=== PATIENT | male | born 1955 | race Caucasian/White ===

== ENCOUNTER 2024-06-23 20:55 | Emergency (ER) | payer OTHER ==
[2024-06-23] MEDS ORDERED: ROCURONIUM 50 MG/5 ML VIAL IV ONE (20:56)
[2024-06-23] MEDS ORDERED: MIDAZOLAM HCL 5 ML ONE (21:13)
[2024-06-23] MEDS ORDERED: ETOMIDATE 20 MG/10 ML VIAL IV ONE (21:13)
[2024-06-23] MEDS ORDERED: MIDAZOLAM HCL IN 0.9 % NACL/PF 100 MG/100 ML BAG IVPB ONE (21:13)
--- NOTE | 2024-06-23 21:19 | RAD REPORT ---
EXAMINATION: Ct Stroke Brain Wo Cont CLINICAL INDICATION: Male, 69 years old.STROKE ALERT TECHNIQUE: Axial CT images from the skull base to the vertex without intravenous contrast. Coronal an d sagittal reformatted images were created from the data set. One or more of the following dose reduction techniques were used: Automated exposure control, adjustment of the mA and/or kV according to patient size, and/or iterative reconstruction. Unless otherwise specified, incidental findings do not require dedicated imaging follow-up. [id number]. COMPARISON: No prior exam. FINDINGS: INTRACRANIAL: Left frontal lobe parenchymal hemorrhage measuring approximately 5.3 x 3.9 cm with a co mbination of subarachnoid and subdural hematoma along the left frontal lobe convexity. No hydrocephalus. There is 7 mm of [id number] midline shift anteriorly. Moderate chronic small vessel ischemic changes.Mild cerebral atrophy. VASCULATURE: No visualized abnormalities in the arteries or dural venous sinuses. SCALP/SKULL: No calvarial fracture identified. No acute soft tissue abnormality. SINUSES: The visualized paranasal sinuses are mostly clear. No significant mastoid fluid. IMPRESSION: Moderate to large left frontal lobe mixed acute intraparenchymal and extra-axial hemorrhage with mild [id number] midline shift. THIS REPORT CONTAINS FINDINGS THAT MAY BE CRITICAL TO PATIENT CARE. The emergent findings were commun icated to Dr. Pate on 06/23/2024 9:15 PM.
[2024-06-23 21:21] LABS: Absolute Basophils 0.1 K/uL (0-0.5); Absolute Monocytes 0.2 K/uL (0.1-1.3); Absolute Neutrophil 8.6 K/uL (1.8-8.0); Basophils % 0.5 % (0-1.3); Eosinophils % 0.1 % (0-4.4); Hematocrit 46.9 % (39.6-49.0); Hemoglobin 15.8 g/dL (13.6-17.9); Lymphocytes % 9.9 % (15.3-44.8); MCH 29.7 pg (27.0-35.0); MCHC 33.8 g/dL (32.0-36.0); MCV 87.9 fL (80-100); MPV 8.7 fL (7.6-11.3); Monocytes % 2.1 % (3.3-12.3); Neutrophils % 87.4 % (41.7-73.7); Nucleated Red Blood Cells % 0.1 % (0-0); Platelets 169 thou/uL (152-406); RBC Red Blood Cell Count 5.33 M/uL (4.33-5.43); Red Cell Distribution Width 13.3 % (12.1-15.2)
[2024-06-23] MEDS ORDERED: propofoL 1,000 MG/100 ML VIAL IV ONE (21:26)
[2024-06-23 21:30] LABS: PT Prothrombin Time 12.2 SECONDS (10.0-13.0); PTT, Activated Partial Thromb 30.9 SECONDS (24.3-36.9); Protime INR 1.07
[2024-06-23 21:40] LABS: Albumin 3.8 g/dL (3.4-5.0); Albumin/Globulin Ratio 0.9 (1.1-1.8); Anion Gap 7.8 mEq/L (5.0-15.0); Bilirubin Direct 0.2 mg/dL (0-0.2); Bilirubin Indirect, Calculated 0.3 mg/dL (0.2-0.8); Bilirubin Total 0.5 mg/dL (0.2-1.0); Globulin 4.2 g/dL (2.3-3.5); Magnesium 2.2 mg/dL (1.6-2.4); Potassium 3.8 mEq/L (3.5-5.1); Troponin High Sensitivity 6.2 pg/mL (<58.9)
[2024-06-23] MEDS ORDERED: TRANEXAMIC ACID 1,000 MG/10 ML VIAL IV ONE (21:49)
[2024-06-23] MEDS ORDERED: Nicardipine/NS 25 MG/250 ML KIT IV ONE (21:50)
[2024-06-23] MEDS ORDERED: NA CHLORIDE 0.9% 100 ML ONE ×2 (21:50→22:24)
--- NOTE | 2024-06-23 21:54 | ER ---
Nurse's Notes [facility] Name: Faisal Abel Jr Age: 69 yrs Sex: Male : 1955 Arrival Date: 06/23/2024 Time: 20:55 Bed 2 Private MD: Diagnosis: Acute intraparenchymal intracranial hemorrhage, acute extra-axial intracranial hemorrhage , acute hypoxemic respiratory failure, hemorrhagic CVA Presentation: 06/23 21:04 Chief complaint: Spouse and/or significant other states: patient was found by at al5 1600 not acting like himself, had an episode of vomiting. patient and son brought patient to ED. upon arrival patient had global aphasia and facial droop. last well known was at 1000. Coronavirus screen: At this time, the client does not indicate any symptoms associated with coronavirus-19. Ebola Screen: No symptoms or risks identified at this time. 21:04 Method Of Arrival: Wheelchair al5 21:04 An acute neurological deficit is present. The charge nurse has been notified. The al5 patient has been moved to a treatment area. Pre-hospital glucose is not applicable to this patient. Initial Sepsis Screen: Does the patient meet any 2 criteria? Altered Mental Status. HR > 90 bpm. Does the patient have a suspected source of infection? No. Patient's initial sepsis screen is negative. Risk Assessment: Do you want to hurt yourself or someone else? Unable to obtain. Onset of symptoms was June 23, 2024 at 10:00. 21:04 Acuity: RUSTY 1 al5 Triage Assessment: 21:04 The onset of the patients symptoms was June 23, 2024 at 10:00. al5 21:04 General: Appears in no apparent distress. comfortable, Behavior is cooperative. Pain: al5 Unable to use pain scale. Patient is disoriented. Does not appear to understand pain scale. EENT: No signs and/or symptoms were reported regarding the EENT system. Neuro: Level of Consciousness is awake, alert, Oriented to person, place, time, situation, Moves all extremities. Speech global aphasia. Facial droop on right. Cardiovascular: Capillary refill < 3 seconds Patient's skin is warm and dry. Rhythm is sinus tachycardia. Respiratory: Airway is patent Respiratory effort is even, unlabored, Respiratory pattern is regular, symmetrical. GI: No signs and/or symptoms were reported involving the gastrointestinal system. : No signs and/or symptoms were reported regarding the genitourinary system. Derm: Skin is intact, is healthy with good turgor, Skin is pink, warm \T\ dry. normal. Musculoskeletal: No signs and/or symptoms reported regarding the musculoskeletal system. 21:04 Neuro: Reports patient cannot report, global aphasia. al5 Stroke Activation: Physician: ED Attending; Name: Dr. 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 - Infectious Disease History:: Denies. - Family history:: not pertinent. - Social history:: Smoking status: Patient reports the use of cigarette tobacco products, unknown amount. Screenin:[address] [facility] ED Fall Risk Assessment (Adult) History of falling in the last 3 months, al5 including since admission No falls in past 3 months (0 pts) Confusion or Disorientation Yes (5 pts) Intoxicated or Sedated Yes (3 pts) Impaired Gait Yes (1 pt) Mobility Assist Device Used No (0 pt) Altered Elimination Yes (1 pt) Score/Fall Risk Level 3 or more points = High Risk Maintained a safe environment, Hourly rounding (assess needs \T\ fall precautionary measures) done. 21:29 Abuse screen: Denies threats or abuse. Denies injuries from another. Nutritional al5 screening: No deficits noted. Tuberculosis screening: No symptoms or risk factors identified. Assessment: 21:29 VAN Scoring: Visual Disturbance: No visual disturbance noted. Aphasia: Patient exhibits al5 both expressive and receptive aphasia. Provider notified of +VAN scoring. Lolita Swallow Protocol Exclusion Criteria: NPO for medical/surgical reason by provider order Yes Brief Cognitive Screen What is your name? Abnormal Where are you right now? Abnormal What year is it? Abnormal Oral Mechanism Examination Oral Mechanism Result: Abnormal: fail, MD aware. 3 oz Water Swallow Challenge: Pt able to drink all water without stopping, coughing, choking or throat clearing: No Result: FAIL Notified: Rob Pate MD. TNKase (Tenecteplase) Screening: Contraindications: Intracranial hemorrhage and its risk factor and suspicion of subarachnoid bleed: Yes. Reassessment: see triage assessment. 21:29 Respiratory: Ventilator assessment: ET Tube: 8.0 at lip. 26 cm Tidal Volume: 500 al5 Respiratory Rate: 16 FiO2: 100%. PEEP: 5. 21:52 Reassessment: report given to [facility] this time. al5 22:01 Reassessment: Reassessment: No changes from previously documented assessment. Patient al5 and/or family updated on plan of care and expected duration. Pain level reassessed. 23:15 Reassessment: No changes from previously documented assessment. Patient and/or family al5 updated on plan of care and expected duration. Pain level reassessed. report given to [facility]. [facility]. Vital Signs: 21:12 BP 139 / 102; Pulse 95; Resp 24; Pulse Ox 95% on R/A; al5 21:15 BP 142 / 93; Pulse 101; Resp 24; Pulse Ox 96% on R/A; al5 21:25 BP 187 / 108; Pulse 115; Resp 16; Temp 98.5; Pulse Ox 99% on ETT vent; Weight 111.58 al5 kg; Height 5 ft. 10 in. (R); 21:30 BP 160 / 96; Pulse 106; Resp 16; Pulse Ox 100% on ETT vent; al5 21:35 BP 159 / 126; Pulse 106; Resp 16; Pulse Ox 100% on ETT vent; al5 21:40 BP 191 / 108; Pulse 114; Resp 16; Pulse Ox 100% on ETT vent; al5 21:45 BP 199 / 132; Pulse 123; Resp 18; Pulse Ox 100% on ETT vent; al5 21:50 BP 169 / 113; Pulse 108; Resp 18; Pulse Ox 100% on ETT vent; al5 21:55 BP 179 / 112; Pulse 114; Resp 19; Pulse Ox 100% on ETT vent; al5 22:00 BP 194 / 108; Pulse 116; Resp 17; Pulse Ox 100% on ETT vent; al5 22:05 BP 198 / 112; Pulse 115; Resp 20; Pulse Ox 100% on ETT vent; al5 22:10 BP 201 / 6; Pulse 129; Resp 22; Pulse Ox 100% on ETT vent; al5 22:15 BP 181 / 102; Pulse 128; Resp 22; Pulse Ox 100% on R/A; al5 22:20 BP 169 / 98; Pulse 133; Resp 23; Pulse Ox 100% on ETT vent; al5 22:25 BP 159 / 94; Pulse 129; Resp 21; Pulse Ox 100% on ETT vent; al5 22:30 BP 158 / 85; Pulse 133; Resp 23; Pulse Ox 100% on ETT vent; al5 22:35 BP 151 / 89; Pulse 122; Resp 22; Pulse Ox 100% on ETT vent; al5 22:40 BP 116 / 80; Pulse 113; Resp 19; Pulse Ox 100% on ETT vent; al5 22:45 BP 123 / 89; Pulse 115; Resp 20; Pulse Ox 100% on ETT vent; al5 21:25 Body Mass Index 35.30 (111.58 kg, 177.8 cm) al5 Lenore Coma Score: 21:29 Eye Response: spontaneous(4). Motor Response: withdraws from pain(4). Verbal Response: sp4 incomprehensible(2). Total: 10. NIH Stroke Scale Scores: 21:29 NIHSS Score: 14 al5 21:29 NIHSS Score: 14 sp4 ED Course: 20:57 Patient arrived in ED. gm2 20:58 Rob Pate MD is Attending Physician. sp4 21:04 Arm band placed on right wrist. Patient placed in the treatment room, on a stretcher, al5 in view of staff members, on cartoon artist, on pulse oximetry. 21:08 Ct Stroke Brain Wo Cont In Process Unspecified. EDMS 21:15 Inserted saline lock: 20 gauge in right antecubital area, using aseptic technique. al5 Blood collected. Flushed with 10 mL NS. 21:15 Inserted saline lock: 18 gauge in left antecubital area, using aseptic technique. Blood al5 collected. Flushed with 10 mL NS. 21:15 Patient has correct armband on for positive identification. Placed in gown. Bed in low al5 position. Call light in reach. Side rails up X2. Provided Education on: need for airway protection, need for transfer. 21:19 Basic Metabolic Panel Sent. rv1 21:19 CBC with Diff Sent. rv1 21:19 Hepatic Function Sent. rv1 21:20 High Sensitivity Troponin Sent. rv1 21:20 Magnesium Sent. rv1 21:20 Protime (+inr) Sent. rv1 21:20 Ptt, Activated Sent. rv1 21:21 Assisted provider with intubation using 8.0 mm ETT via oral route. ET tube secured at al5 26cm at the lips. Set up intubation tray. Intubated by Rob Pate MD Placement verified by CO2 detector w/ + color change, auscultating bilateral breath sounds, CXR, Patient tolerated well. 21:26 Borjas cath inserted, using sterile technique, 18 Fr., by ED staff, balloon inflated, to al5 gravity drainage, clamped. urine specimen collected. Patient tolerated well. 21:29 Initiated transfer with Nena at [facility]. rv1 21:38 Gissel Martinez, RN is Primary Nurse. al5 21:[address] Alexander to [facility]. Nena said she will call me back with a rv1 bed assignment but to go ahead and call [facility] for transport. 21:41 [facility] gave 40 min ETA. rv1 21:57 Bed Assignment given, [facility] [address] [address] Bed 11. Report # [id number]. rv1 22:00 Abdomen Single View In Process Unspecified. EDMS 22:01 Stroke CXR 1 View In Process Unspecified. EDMS 22:13 [facility] called and said our helicopter had to be re-routed, gave updated ETA 25mins.rv1 22:23 Triage completed. al5 23:25 Patient transferred, IV remains in place. al5 Administered Medications: 23:15 Discontinued: nicardipine5 mg/hr IV at calculated rate See Administration Instructions; al5 (Standard concentration 25 mg / 250 mL NS); Recommended max rate 15 mg/hr; Titrate 2.5 mg/hr as often as every 15 minutes to achieve goal (see titration policy); Goal parameter SBP less than 160 mmHg 21:17 Drug: NS 0.9% IV 1000 ml IV at 125 ml/hr Per protocol; to be given as a bolus over 60 al5 minutes Route: IV; Rate: 125 ml/hr; Site: right antecubital; 23:16 Follow up: Response: No adverse reaction; IV Status: Infusion continued upon transfer al5 21:19 Drug: Etomidate IVP 40 mg IVP once Route: IVP; Site: right antecubital; al5 23:18 Follow up: Response: No adverse reaction al5 21:19 Drug: Midazolam IVP or IV 5 mg IVP once Route: IVP; Site: right antecubital; al5 23:18 Follow up: Response: No adverse reaction al5 21:20 Drug: Rocuronium IVP 100 mg IVP once Route: IVP; Site: right antecubital; al5 23:18 Follow up: Response: No adverse reaction al5 21:30 Drug: Propofol IV 5 mcg/kg/min IV at calculated rate See Administration Instructions; al5 Standard concentration 1000 mg / 100 mL; Recommended max rate 50 mcg/kg/min; Titrate 5 mcg/kg/min every 5 minutes to achieve goal (see titration policy); Goal parameter RASS score 0 to -2 Route: IV; Rate: calculated rate; Site: left antecubital; 22:17 Follow up: Response: No adverse reaction; RASS: Drowsy (-1); Rate change 10 mcg/kg/min al5 22:49 Follow up: Response: No adverse reaction; RASS: Drowsy (-1); Rate change 30 mcg/kg/min al5 23:16 Follow up: Response: No adverse reaction; IV Status: Infusion continued upon transfer al5 22:00 Drug: tranexamic acid 1000 mg IV at calculated rate once; administer at a rate not to vc1 exceed 100 mg per min Route: IV; Rate: calculated rate; Infused Over: 10 mins; Site: right antecubital; 22:10 Follow up: Response: No adverse reaction; IV Status: Completed infusion al5 22:00 Drug: niCARdipine IV 5 mg/hr IV at calculated rate See Administration Instructions; vc1 (Standard concentration 25 mg / 250 mL NS); Recommended max rate 15 mg/hr; Titrate 2.5 mg/hr as often as every 15 minutes to achieve goal (see titration policy); Goal parameter SBP less than 160 mmHg Route: IV; Rate: calculated rate; Site: left forearm; 22:49 Follow up: Response: No adverse reaction; Blood pressure is lowered; Rate change 5 mg/hral5 23:17 Follow up: Response: No adverse reaction al5 23:34 Follow up: Response: No adverse reaction; IV Status: Order to discontinue infusion al5 22:37 Drug: Mannitol IV 20% 1 g/kg 500 ml IV at calculated rate once; Administer over 30 to vc1 60 minutes {Note: 25G Mannitol in 125ml administered over 15 minutes per provider. Whole amount no available. .} Volume: 500 ml; Route: IV; Rate: calculated rate; Site: right antecubital; 23:15 Follow up: Response: No adverse reaction; IV Status: Completed infusion; IV Intake: al5 125ml Medication: 21:29 VIS not applicable for this client. al5 Point of Care Testing: Blood Glucose: 21:15 Blood Glucose: 130 mg/dL; al5 Ranges: Intake: 23:15 IV: 125ml; Total: 125ml. al5 Outcome: 21:53 ER care complete, transfer ordered by spBert 23:10 [place] [facility] al5 23:10 critical 23:10 Instructed on the need for transfer, 23:34 Patient left the ED. al5 NIH Stroke Scale - NIH Stroke Score Date: 06/23/2024 Time: 21:29 Total Score = 14 10. Dysarthria (speech clarity - read or repeat words) - 2(Severe) 11. Extinction and Inattention (visual/tactile/auditory/spatial/personal) - 0(No abnormality) 1a. Level of Consciousness (LOC) - 1(Not Alert) 1b. Level of Consciousness (LOC) (Month \T\ Age) - 2(Neither) 1c. LOC Commands (Open \T\ Closes Eyes/[employer] Consultant) - 2(Neither) 2. Best Gaze (Lateral Gaze Paresis) - 1(Partial gaze palsy) 3. Visual Field Loss - 0(No visual loss) 4. Facial Palsy - 1(Minor Paralysis) 5a. Left Arm: Motor (10-second hold) - 0(No drift) 5b. Right Arm: Motor (10-second hold) - 0(No drift) 6a. Left Leg: Motor (5-second hold - always test supine) - 0(No drift) 6b. Right Leg: Motor (5-second hold - always test supine) - 0(No drift) 7. Limb Ataxia (finger/nose \T\ heel/brunson - test with eyes open) - 0(Absent) 8. Sensory Loss (pinprick arms/legs/face) - 2(Severe to total loss) 9. Best Language: Aphasia (description/naming/reading) - 3(Mute, global aphasia) Initials: al5 NIH Stroke Scale - NIH Stroke Score Date: 06/23/2024 Time: 21:29 Total Score = 14 10. Dysarthria (speech clarity - read or repeat words) - 2(Severe) 11. Extinction and Inattention (visual/tactile/auditory/spatial/personal) - 0(No abnormality) 1a. Level of Consciousness (LOC) - 1(Not Alert) 1b. Level of Consciousness (LOC) (Month \T\ Age) - 2(Neither) 1c. LOC Commands (Open \T\ Closes Eyes/[employer] Consultant) - 2(Neither) 2. Best Gaze (Lateral Gaze Paresis) - 1(Partial gaze palsy) 3. Visual Field Loss - 0(No visual loss) 4. Facial Palsy - 1(Minor Paralysis) 5a. Left Arm: Motor (10-second hold) - 0(No drift) 5b. Right Arm: Motor (10-second hold) - 0(No drift) 6a. Left Leg: Motor (5-second hold - always test supine) - 0(No drift) 6b. Right Leg: Motor (5-second hold - always test supine) - 0(No drift) 7. Limb Ataxia (finger/nose \T\ heel/brunson - test with eyes open) - 0(Absent) 8. Sensory Loss (pinprick arms/legs/face) - 2(Severe to total loss) 9. Best Language: Aphasia (description/naming/reading) - 3(Mute, global aphasia) Initials: sp4 Signatures: Dispatcher [employer] EDMS Kesha Hernandez RN RN vc1 Aida Fuentes1 Rob Pate MD MD sp4 Paige Jain gm2 Gissel Martinez RN RN al5 Corrections: (The following items were deleted from the chart) 21:33 21:31 BP 187 / 108; Pulse 115bpm; Resp 18bpm; Pulse Ox 99% ET / Ventilator; rv1 111.58 kg; Height 5 ft. 10 in. Reported; BMI: 35.3; rv1 22:23 22:23 Immunization history: Adult Immunizations unknown, al5 al5 :23 22:23 Social history: Smoking status: Patient reports the use of cigarette al5 tobacco products, unknown amount al5 23:15 22:01 Reassessment: al5 al5 23: 23:15 Reassessment: No changes from previously documented assessment. Patient al5 and/or family updated on plan of care and expected duration. Pain level reassessed. al5 23:23 21:29 Reassessment: see triage assessment al5 al5 23:28 21:31 BP 187 / 108; Pulse 115bpm; Resp 16bpm; Pulse Ox 99% ET / Ventilator; al5 Temp 98.5F; 111.58 kg; Height 5 ft. 10 in. Reported; BMI: 35.3; rv1 23:35 23:17 Response: No adverse reaction al5 al5
--- NOTE | 2024-06-23 21:54 | EDPHYS ---
Physician Documentation [facility] Name: Faisal Abel Jr Age: 69 yrs Sex: Male : 1955 Arrival Date: 06/23/2024 Time: 20:55 Bed 2 Private MD: ED Physician Rob Pate HPI: 06/23 21:00 This 69 yrs old Male presents to ER via Unassigned with complaints of S/S of sp4 Possible Stroke. 21:00 69-year-old male presents with altered mental status, was discovered at home altered at sp4 about 4 PM. 21:29 69-year-old male, with history of prior detached retina, . sp4 21:34 Patient presents with acute altered mental status, patient last seen normal at 10 AM sp4 this morning. Patient's arrived home at 4 PM and noticed patient was not well. Patient had episode of profuse vomiting. Patient's and his son were able to load the patient on a truck and bring him to the emergency room. On arrival patient has global aphasia and is not able to follow commands. Patient had to be dragged out of his truck. . Historical: - Allergies: 21:04 No Known Allergies; al5 - PMHx: 21:04 retinal detachment; al5 - PSHx: 21:04 None; al5 - Immunization history:: Adult Immunizations unknown. - Infectious Disease History:: Denies. - Family history:: not pertinent. - Social history:: Smoking status: Patient reports the use of cigarette tobacco products, unknown amount. ROS: 21:45 Constitutional: Negative for fever, chills, and weight loss, sp4 21:45 All other systems are negative, 21:45 Unable to obtain ROS due to altered mental status, Exam: 21:45 Radiologist reports: Large left frontal hemorrhage with midline shift sp4 21:47 Constitutional: This is a well developed, well nourished patient , global aphasia on sp4 arrival. Unable to follow commands. Diaphoretic. Covered in emesis Head/Face: Normocephalic, atraumatic. Eyes: Pupils equal round and reactive to light, extra-ocular motions intact. Lids and lashes normal. Conjunctiva and sclera are not injected. Cornea within normal limits. Periorbital areas with no swelling, redness, or edema. ENT: Nares patent. No nasal discharge, no septal abnormalities noted. Tympanic membranes are normal and external auditory canals are clear. Oropharynx with no redness, swelling, or masses, exudates, or evidence of obstruction, uvula midline. Mucous membranes moist. Neck: Trachea midline, no thyromegaly or masses palpated, and no cervical lymphadenopathy. Supple, full range of motion without nuchal rigidity, or vertebral point tenderness. Chest/axilla: Normal chest wall appearance and motion. Nontender with no deformity. No lesions are appreciated. Cardiovascular: Regular rate and rhythm with a normal S1 and S2. No gallops, murmurs, or rubs. Normal PMI, no JVD. No pulse deficits. Respiratory: Lungs have equal breath sounds bilaterally, clear to auscultation and percussion. No rales, rhonchi or wheezes noted. No increased work of breathing, no retractions or nasal flaring. Abdomen/GI: Soft, with normal bowel sounds. No distension or tympany. No guarding or rebound. No evidence of tenderness throughout. Back: No spinal tenderness. No costovertebral tenderness. Male : Normal genitalia with no discharge or lesions. Skin: Warm, dry with normal turgor. Normal color with no rashes, no lesions, and no evidence of cellulitis. MS/ Extremity: Pulses equal, no cyanosis. Neurovascular intact. Full, normal range of motion. Neuro: Awake. Obtunded, unable to follow commands, global aphasia, patient had to be pulled out of his truck brought into the emergency room. Patient is moving all of his extremities. Not able to follow commands. GCS 10 Vital Signs: 21:12 BP 139 / 102; Pulse 95; Resp 24; Pulse Ox 95% on R/A; al5 21:15 BP 142 / 93; Pulse 101; Resp 24; Pulse Ox 96% on R/A; al5 21:25 BP 187 / 108; Pulse 115; Resp 16; Temp 98.5; Pulse Ox 99% on ETT vent; Weight 111.58 al5 kg; Height 5 ft. 10 in. (R); 21:30 BP 160 / 96; Pulse 106; Resp 16; Pulse Ox 100% on ETT vent; al5 21:35 BP 159 / 126; Pulse 106; Resp 16; Pulse Ox 100% on ETT vent; al5 21:40 BP 191 / 108; Pulse 114; Resp 16; Pulse Ox 100% on ETT vent; al5 21:45 BP 199 / 132; Pulse 123; Resp 18; Pulse Ox 100% on ETT vent; al5 21:50 BP 169 / 113; Pulse 108; Resp 18; Pulse Ox 100% on ETT vent; al5 21:55 BP 179 / 112; Pulse 114; Resp 19; Pulse Ox 100% on ETT vent; al5 22:00 BP 194 / 108; Pulse 116; Resp 17; Pulse Ox 100% on ETT vent; al5 22:05 BP 198 / 112; Pulse 115; Resp 20; Pulse Ox 100% on ETT vent; al5 22:10 BP 201 / 6; Pulse 129; Resp 22; Pulse Ox 100% on ETT vent; al5 22:15 BP 181 / 102; Pulse 128; Resp 22; Pulse Ox 100% on R/A; al5 22:20 BP 169 / 98; Pulse 133; Resp 23; Pulse Ox 100% on ETT vent; al5 22:25 BP 159 / 94; Pulse 129; Resp 21; Pulse Ox 100% on ETT vent; al5 22:30 BP 158 / 85; Pulse 133; Resp 23; Pulse Ox 100% on ETT vent; al5 22:35 BP 151 / 89; Pulse 122; Resp 22; Pulse Ox 100% on ETT vent; al5 22:40 BP 116 / 80; Pulse 113; Resp 19; Pulse Ox 100% on ETT vent; al5 22:45 BP 123 / 89; Pulse 115; Resp 20; Pulse Ox 100% on ETT vent; al5 21:25 Body Mass Index 35.30 (111.58 kg, 177.8 cm) al5 NIH Stroke Scale Scores: 21:29 NIHSS Score: 14 al5 21:29 NIHSS Score: 14 sp4 Lenore Coma Score: 21:29 Eye Response: spontaneous(4). Motor Response: withdraws from pain(4). Verbal Response: sp4 incomprehensible(2). Total: 10. Procedures: 21:31 Intubation: Ventilated with 100% NRB prior to procedure. O2 saturation prior to sp4 procedure was 96 %. Intubated Big Arm scope assisted intubation using S4 Blade with 8.0 mm ETT. was successful on first attempt. Ventilated with Ambu bag. ventilator. Tube secured with ETT roy at center of mouth measured 26 cm at lip. Placement verified by CXR, CO2 detector with (+) color change, auscultating bilateral breath sounds, O2 saturation after procedure was 100 %. Big Arm scope assisted intubation. Patient tolerated well, Saturations stable after intubation. MDM: 21:00 Medical Screening Exam initiated sp4 21:47 Differential diagnosis: CVA, TIA, Dementia, paralysis, drug effects. TNKase sp4 (Tenecteplase) Screening: Contraindications: Intracranial hemorrhage and its risk factor and suspicion of subarachnoid bleed:. Data reviewed: vital signs, nurses notes, old medical records, lab test result(s), EKG, radiologic studies, CT scan, plain films. Consideration of Admission/Observation Escalation of care including admission/observation considered. ED course: EXAMINATION: Ct Stroke Brain Wo Cont CLINICAL INDICATION: Male, 69 years old.STROKE ALERT TECHNIQUE: Axial CT images from the skull base to the vertex without intravenous contrast. Coronal and sagittal reformatted images were created from the data set. One or more of the following dose reduction techniques were used: Automated exposure control, adjustment of the mA and/or kV according to patient size, and/or iterative reconstruction. Unless otherwise specified, incidental findings do not require dedicated imaging follow-up. [id number]. COMPARISON: No prior exam. FINDINGS: INTRACRANIAL: Left frontal lobe parenchymal hemorrhage measuring approximately 5.3 x 3.9 cm with a combination of subarachnoid and subdural hematoma along the left frontal lobe convexity. No hydrocephalus. There is 7 mm of [id number] midline shift anteriorly. Moderate chronic small vessel ischemic changes.Mild cerebral atrophy. VASCULATURE: No visualized abnormalities in the arteries or dural venous sinuses. SCALP/SKULL: No calvarial fracture identified. No acute soft tissue abnormality. SINUSES: The visualized paranasal sinuses are mostly clear. No significant mastoid fluid. IMPRESSION: Moderate to large left frontal lobe mixed acute intraparenchymal and extra-axial hemorrhage with mild [id number] midline shift. THIS REPORT CONTAINS FINDINGS THAT MAYBE CRITICAL TO PATIENT CARE. The emergent findings were communicated to Dr. Pate on 06/23/2024 9:15 PM.. ED course: Patient was discussed emergently with Dr. Payne and this was at [facility].. Patient accepted for emergent transfer over the aeromedical transport. . 06/23 20:58 Order name: Basic Metabolic Panel 4 06/23 20:58 Order name: CBC with Diff; Complete Time: 21:36 sp4 06/23 20:58 Order name: Hepatic Function 4 06/23 20:58 Order name: High Sensitivity Troponin 4 06/23 20:58 Order name: Magnesium 4 06/23 20:58 Order name: Protime (+inr); Complete Time: 21:36 sp4 06/23 20:58 Order name: Ptt, Activated; Complete Time: 21:36 sp4 06/23 20:58 Order name: UDS 4 06/23 20:59 Order name: AMMONIA 4 06/23 20:59 Order name: Lactate w/ 2H reflex if indic. 4 06/23 22:14 Order name: Ghost Lactate-NO COLLECT Timer [facility] 06/23 20:58 Order name: Stroke CXR 1 View 4 06/23 21:02 Order name: Ct Stroke Brain Wo Cont; Complete Time: 21:36 EDTN 06/23 22:00 Order name: Abdomen Single View EDTN 06/23 20:58 Order name: Accucheck; Complete Time: 21:42 sp4 06/23 20:58 Order name: Cardiac monitoring; Complete Time: 21:42 sp4 06/23 20:58 Order name: EKG - Nurse/Tech; Complete Time: 21:19 sp4 06/23 20:58 Order name: IV Saline Lock; Complete Time: 21:19 sp4 06/23 20:58 Order name: Labs collected and sent; Complete Time: 21:19 sp4 06/23 20:58 Order name: NPO; Complete Time: 21:19 sp4 06/23 20:58 Order name: O2 Per Protocol; Complete Time: 21:19 sp4 06/23 20:58 Order name: O2 Sat Monitoring; Complete Time: 21:19 sp4 06/23 20:58 Order name: Stroke Swallow Screen; Complete Time: 21:42 sp4 06/23 21:12 Order name: Intubation Setup; Complete Time: 21:42 sp4 06/23 21:12 Order name: Borjas; Complete Time: 21:42 sp4 06/23 21:29 Order name: NG Tube; Complete Time: 21:42 sp4 Administered Medications: 23:15 Discontinued: nicardipine5 mg/hr IV at calculated rate See Administration Instructions; al5 (Standard concentration 25 mg / 250 mL NS); Recommended max rate 15 mg/hr; Titrate 2.5 mg/hr as often as every 15 minutes to achieve goal (see titration policy); Goal parameter SBP less than 160 mmHg 21:17 Drug: NS 0.9% IV 1000 ml IV at 125 ml/hr Per protocol; to be given as a bolus over 60 al5 minutes Route: IV; Rate: 125 ml/hr; Site: right antecubital; 23:16 Follow up: Response: No adverse reaction; IV Status: Infusion continued upon transfer al5 21:19 Drug: Etomidate IVP 40 mg IVP once Route: IVP; Site: right antecubital; al5 23:18 Follow up: Response: No adverse reaction al5 21:19 Drug: Midazolam IVP or IV 5 mg IVP once Route: IVP; Site: right antecubital; al5 23:18 Follow up: Response: No adverse reaction al5 21:20 Drug: Rocuronium IVP 100 mg IVP once Route: IVP; Site: right antecubital; al5 23:18 Follow up: Response: No adverse reaction al5 21:30 Drug: Propofol IV 5 mcg/kg/min IV at calculated rate See Administration Instructions; al5 Standard concentration 1000 mg / 100 mL; Recommended max rate 50 mcg/kg/min; Titrate 5 mcg/kg/min every 5 minutes to achieve goal (see titration policy); Goal parameter RASS score 0 to -2 Route: IV; Rate: calculated rate; Site: left antecubital; 22:17 Follow up: Response: No adverse reaction; RASS: Drowsy (-1); Rate change 10 mcg/kg/min al5 22:49 Follow up: Response: No adverse reaction; RASS: Drowsy (-1); Rate change 30 mcg/kg/min al5 23:16 Follow up: Response: No adverse reaction; IV Status: Infusion continued upon transfer al5 22:00 Drug: tranexamic acid 1000 mg IV at calculated rate once; administer at a rate not to vc1 exceed 100 mg per min Route: IV; Rate: calculated rate; Infused Over: 10 mins; Site: right antecubital; 22:10 Follow up: Response: No adverse reaction; IV Status: Completed infusion al5 22:00 Drug: niCARdipine IV 5 mg/hr IV at calculated rate See Administration Instructions; vc1 (Standard concentration 25 mg / 250 mL NS); Recommended max rate 15 mg/hr; Titrate 2.5 mg/hr as often as every 15 minutes to achieve goal (see titration policy); Goal parameter SBP less than 160 mmHg Route: IV; Rate: calculated rate; Site: left forearm; 22:49 Follow up: Response: No adverse reaction; Blood pressure is lowered; Rate change 5 mg/hral5 23:17 Follow up: Response: No adverse reaction al5 23:34 Follow up: Response: No adverse reaction; IV Status: Order to discontinue infusion al5 22:37 Drug: Mannitol IV 20% 1 g/kg 500 ml IV at calculated rate once; Administer over 30 to vc1 60 minutes {Note: 25G Mannitol in 125ml administered over 15 minutes per provider. Whole amount no available. .} Volume: 500 ml; Route: IV; Rate: calculated rate; Site: right antecubital; 23:15 Follow up: Response: No adverse reaction; IV Status: Completed infusion; IV Intake: al5 125ml Point of Care Testing: Blood Glucose: 21:15 Blood Glucose: 130 mg/dL; al5 Ranges: Critical Glucose Levels:Adult <50 mg/dl or >400 mg/dl <40 mg/dl or >180 mg/dl Disposition Summary: 06/23/24 21:53 Transfer Ordered Notes: Transfer Location: [facility] sp4 Reason: Higher level of care sp4 Condition: Critical sp4 Problem: new sp4 Symptoms: have improved sp4 Accepting Physician: [facility]'s Dr. Payne(06/23/24 23:34) al5 Diagnosis - Acute intraparenchymal intracranial hemorrhage, acute extra-axial intracranial sp4 hemorrhage , acute hypoxemic respiratory failure, hemorrhagic CVA Forms: - Medication Reconciliation Form sp4 - SBAR form sp4 Critical care time excluding procedures: 21:47 Critical care time: Bedside Care: 36 minutes, Consultation: 12 minutes, Family sp4 Intervention: 12 minutes. Total time: 60 minutes NIH Stroke Scale - NIH Stroke Score Date: 06/23/2024 Time: 21:29 Total Score = 14 10. Dysarthria (speech clarity - read or repeat words) - 2(Severe) 11. Extinction and Inattention (visual/tactile/auditory/spatial/personal) - 0(No abnormality) 1a. Level of Consciousness (LOC) - 1(Not Alert) 1b. Level of Consciousness (LOC) (Month \T\ Age) - 2(Neither) 1c. LOC Commands (Open \T\ Closes Eyes/Psych Np) - 2(Neither) 2. Best Gaze (Lateral Gaze Paresis) - 1(Partial gaze palsy) 3. Visual Field Loss - 0(No visual loss) 4. Facial Palsy - 1(Minor Paralysis) 5a. Left Arm: Motor (10-second hold) - 0(No drift) 5b. Right Arm: Motor (10-second hold) - 0(No drift) 6a. Left Leg: Motor (5-second hold - always test supine) - 0(No drift) 6b. Right Leg: Motor (5-second hold - always test supine) - 0(No drift) 7. Limb Ataxia (finger/nose \T\ heel/brunson - test with eyes open) - 0(Absent) 8. Sensory Loss (pinprick arms/legs/face) - 2(Severe to total loss) 9. Best Language: Aphasia (description/naming/reading) - 3(Mute, global aphasia) Initials: al5 NIH Stroke Scale - NIH Stroke Score Date: 06/23/2024 Time: 21:29 Total Score = 14 10. Dysarthria (speech clarity - read or repeat words) - 2(Severe) 11. Extinction and Inattention (visual/tactile/auditory/spatial/personal) - 0(No abnormality) 1a. Level of Consciousness (LOC) - 1(Not Alert) 1b. Level of Consciousness (LOC) (Month \T\ Age) - 2(Neither) 1c. LOC Commands (Open \T\ Closes Eyes/Psych Np) - 2(Neither) 2. Best Gaze (Lateral Gaze Paresis) - 1(Partial gaze palsy) 3. Visual Field Loss - 0(No visual loss) 4. Facial Palsy - 1(Minor Paralysis) 5a. Left Arm: Motor (10-second hold) - 0(No drift) 5b. Right Arm: Motor (10-second hold) - 0(No drift) 6a. Left Leg: Motor (5-second hold - always test supine) - 0(No drift) 6b. Right Leg: Motor (5-second hold - always test supine) - 0(No drift) 7. Limb Ataxia (finger/nose \T\ heel/brunson - test with eyes open) - 0(Absent) 8. Sensory Loss (pinprick arms/legs/face) - 2(Severe to total loss) 9. Best Language: Aphasia (description/naming/reading) - 3(Mute, global aphasia) Initials: sp4 Signatures: Dispatcher [employer] EDMS Kesha Hernandez RN RN vc1 Rob Pate MD MD sp4 Gissel Martinez RN RN al5 Corrections: (The following items were deleted from the chart) 20:59 20:59 Neck Angio+CT.RAD.BRZ ordered. EDMS EDMS 20:59 20:59 CT-STROKE BRAIN W/O CONTRAST+CT.RAD.BRZ ordered. EDMS EDMS 20:59 20:59 Chest Single View+RAD.RAD.BRZ ordered. EDMS EDMS 21:00 20:58 Head Brain Wo Cont+CT.RAD.BRZ ordered. EDMS EDMS 21:00 20:59 AMMONIA+C.LAB.BRZ ordered. EDMS EDMS 21:00 20:59 LACTATE+C.LAB.BRZ ordered. EDMS EDMS 21:06 20:59 Head Angio+CT.RAD.BRZ ordered. EDMS EDMS 22:00 21:42 Chest Single View+RAD.RAD.BRZ ordered. EDMS EDMS 22:23 22:23 Immunization history: Adult Immunizations unknown, al5 al5 22:23 22:23 Social history: Smoking status: Patient reports the use of cigarette al5 tobacco products, unknown amount al5 23:34 21:[address] [facility] Payne sp4 al5
[2024-06-23 21:55] LABS: Barbiturates NEGATIVE (NEGATIVE); Benzodiazepines NEGATIVE (NEGATIVE); Cocaine NEGATIVE (NEGATIVE); METHAMPHETAM NEGATIVE (NEGATIVE); Methadone NEGATIVE (NEGATIVE); Opiates NEGATIVE (NEGATIVE); Phencyclidine NEGATIVE (NEGATIVE); THC Cannibis POSITIVE (NEGATIVE)
--- NOTE | 2024-06-23 22:14 | RAD REPORT ---
EXAM: AP view(s) of the abdomen Abdomen Single View HISTORY: OGT placement COMPARISON: None FINDINGS: Nonobstructive bowel gas pattern.. Enteric tube terminates overlying the upper stomach in satisfacto ry position. Probable bilateral renal calculi.. No acute osseous abnormality. Other: n/a IMPRESSION: Nonobstructive bowel gas pattern. Enteric tube in satisfactory position.
--- NOTE | 2024-06-23 22:15 | RAD REPORT ---
EXAM: Chest Single View HISTORY: 69 years Male CHEST PAIN COMPARISON: None. FINDINGS: LUNGS/PLEURA: The lungs are clear. No pleural effusions or pneumothorax. No pulmonary edema. CARDIAC/MEDIASTINUM: Magnified by portable technique, but probably within normal limits. UPPER ABDOMEN: No significant abnormality. BONES: No acute abnormality. LINES/TUBES/OTHER: Endotracheal tube at the aortic arch in satisfactory position. Enteric tube overly ing the upper stomach in satisfactory position. IMPRESSION: Endotracheal tube and enteric tube in satisfactory position. The lungs are clear.
[2024-06-23 22:17] VITALS: O2SAT 100
[2024-06-23] MEDS ORDERED: MANNITOL 25% 100 ML IV ONE (22:19)
[2024-06-23] MEDS ORDERED: NA CHLORIDE 0.9% 500 ML ONE (22:20)
[2024-06-23] MEDS ORDERED: NA CHLORIDE 0.9% 250 ML ONE (22:24)
[2024-06-23 23:41] VITALS: TEMP 98.5
[2024-06-24] VITALS: BP 123/89
== END 2024-06-23 23:34 | disposition short-term general hospital (02) ==
LOC: ER 20:55
DX: I61.8 Other nontraumatic intracerebral hemorrhage (principal); I60.8 Other nontraumatic subarachnoid hemorrhage; J96.01 Acute respiratory failure with hypoxia; R29.714 NIHSS score 14
CPT/HCPCS: 85025; 80048; 36415; 82140; 83735; 85610; 80076; 83605; 85730; 84484; 80307; 70450; 74018; 71045; 94002; J2704; J2250 ×2; J2150; J7050; J7040